=== PATIENT | male | born 1960 | race Caucasian/White ===

== ENCOUNTER → 2016-09-15 | Outpatient (CLI) | payer OTHER ==
--- NOTE | 2016-09-15 12:35 | DX ---
Chest, Two Views 1202 hours History: Cough. R 05 Comparison: None. Findings: Cardiac silhouette is within normal range. No pneumonia, congestive heart failure, pleura l effusion, or pneumothorax. Bilateral peribronchial thickening suggesting bronchitis. Impression: 1. Mild bronchitis. 2. No definite focal pneumonia.
== END ==
LOC: BMCIMAGING 12:03
PROVIDERS: ATTEND Internal Medicine
DX: J40 Bronchitis, not specified as acute or chronic (principal)